=== PATIENT | male | born 2000 | race African-American/Black ===

== ENCOUNTER 2023-02-19 11:52 | Emergency (ER) | payer SELFPAY ==
[2023-02-19 12:04] VITALS: BP 105/52; PULSE 56; RESP 18; TEMP 36.5; O2SAT 98; BMI 22.4
--- NOTE | 2023-02-19 12:05 | ED_ITS ---
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 He denies any numbness weakness or tingling he is able to straighten and bend the thumb normally there is no other injury he is up-to-date on tetanus shot <CIARAN Romero - Last Filed: 02/19/23 13:05> Related Data Allergies/Adverse Reactions: Allergies Allergy/AdvReac Type Severity Reaction Status Date / Time No Known Allergies Allergy Verified 02/19/23 12:09 <Dayna Amaya NP - Last Filed: 02/19/23 12:07> [facility] Past Medical History Source: nursing notes reviewed <CIARAN Romero - Last Filed: 02/19/23 13:05> Social History Social History: Social History Advance Directives: No Advance Directives Information Provided: No <Dayna Amaya NP - Last Filed: 02/19/23 12:07> Physical Exam Vital Signs: Vital Signs: Last Vital Signs Temp 97.7 F 02/19/23 12:04 Pulse 56 02/19/23 12:04 Resp 02/19/23 12:04 BP 105/52 L 02/19/23 12:04 Pulse Ox 98 02/19/23 12:04 O2 Del Method Room Air 02/19/23 12:04 BMI result Body Mass Index 22.4 <Dayna Amaya NP - Last Filed: 02/19/23 12:07> Vital Signs: Last Vital Signs Temp 97.7 F 02/19/23 12:04 Pulse 56 02/19/23 12:04 Resp 18 02/19/23 12:04 BP 105/52 L 02/19/23 12:04 Pulse Ox 98 02/19/23 12:04 O2 Del Method Room Air 02/19/23 12:04 BMI result Body Mass Index 22.4 <CIARAN Romero Last Filed: 02/19/23 13:05> General appearance is no distress Head is normocephalic atraumatic Neck is supple Respiratory no distress Extremities full range of motion x4 including left thumb There is a 1 cm superficial flap laceration over the dorsal mid phalanx of the left thumb, the patient has full extension as well as full flexion, neurovascular intact distal, the range of motion is painless Other extremities normal <CIARAN Romero Last Filed: 02/19/23 13:05> Course Course Course Narrative: This is a rapid medical exam. deferred additional HPI, ROS, PE to primary provider. 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 Tetanus UTD. Patient with superficial laceration over the dorsal aspect of the left thumb with bleeding noted. May need suture repair. VSS <MADELYN Fay Last Filed: 02/19/23 12:07> This is a rapid medical exam. deferred additional HPI, ROS, PE to primary provider. 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 Tetanus UTD. Patient with superficial laceration over the dorsal aspect of the left thumb with bleeding noted. May need suture repair. 1 cm left thumb flap laceration is cleansed and irrigated, and Steri-Strips are in dressing are applied and well-appearing patient without tendon deficit, is discharged VSS <CIARAN Romero Last Filed: 02/19/23 13:05> Discharge Plan Discharge Clinical Impression: Laceration of left thumb <MADELYN Fay Last Filed: 02/19/23 12:07> Patient Disposition: Home, Self-Care <MADELYN Fay Last Filed: 02/19/23 12:07> Additional Instructions: Steri-Strips can be removed in 4-5 days If Band-Aid covering Steri-Strips get sweat change it and apply only after finger has dried off Return any time for redness swelling any sign of infection Follow with [facility] for work related injury if needed <MADELYN Fay Last Filed: 02/19/23 12:07> Referrals: [facility] [Provider Group] (Laceration at work) <Dayna Amaya NP - Last Filed: 02/19/23 12:07> Stand Alone Forms: Work/School Release <Dayna Amaya NP - Last Filed: 02/19/23 12:07>
== END 2023-02-19 13:03 | disposition home or self-care (01) ==
PROVIDERS: Emergency Provider Emergency Medicine Emergency Medical Services
DX: S61.012A Laceration without foreign body of left thumb without damage to nail, initial encounter (principal); W26.0XXA Contact with knife, initial encounter; Y93.G3 Activity, cooking and baking; Y92.219 Unspecified school as the place of occurrence of the external cause; Y99.9 Unspecified external cause status
CPT/HCPCS: 12001; 99282; 99283